=== PATIENT | female | born 1955 | race Caucasian/White ===

== ENCOUNTER 2018-04-04 09:49 | Inpatient (IN) ==
--- NOTE | 2018-04-04 07:01 | Discharge Summary ---
<Althea Martinez E - Last Filed: 04/04/18 09:32> Orders not resulted at time of discharge: Pending orders 04/04/18 01:00 XR knee LT limited 1-2V [XR] Routine Hemoglobin and Hematocrit [HEME] Routine Date of Encounter: 04/04/18 - Discharge Diagnosis (1) Arthritis of left knee Priority: Primary Status: Chronic (2) Status post total left knee replacement Priority: Primary Status: Acute (3) Hypothyroidism Priority: Secondary Status: Chronic Qualifiers: Hypothyroidism type: unspecified Qualified Code(s): E03.9 - Hypothyroidism , unspecified (4) Hyperlipidemia Priority: Secondary Status: Chronic Qualifiers: Hyperlipidemia type: unspecified Qualified Code(s): E78.5 - Hyperlipidemia , unspecified (5) Diverticulosis Priority: Secondary Status: Chronic Qualifiers: Diverticulosis site: unspecified location Diverticulosis bleeding: diverticulosis without bleeding Qualified Code(s): K57.90 - Diverticulosis of intestine, part unspecified, without perforation or abscess without bleeding (6) Obesity Priority: Secondary Status: Chronic Qualifiers: Obesity type: unspecified obesity type Obesity classification: unspecified obesity classification - Hospital Course Hospital course: Ms. Mcclelland is a 62 year old female - Time Spent with Patient Total time spent providing and/or coordinating discharge services: - Discharge Medications Prescriptions: Aspirin Enteric Coated [Aspirin EC] 325 mg PO BID 10 Days #20 tab OxyCODONE Immed Rel [Roxicodone 5 MG] 5 mg PO Q6HR PRN 7 Days #28 tablet PRN Reason: Severe Pain Home Medications: Cholecalciferol (Vitamin D3) [Vitamin D3] 5,000 unit PO DAILY 03/13/16 [History] Levothyroxine Sodium [Tirosint] 112 mcg PO QAM 03/13/16 [History] Rosuvastatin Calcium [Crestor] 5 mg PO HS 03/13/16 [History] Ubidecarenone [Co Q10] 60 mg PO DAILY 03/13/16 [History] Aspirin 81 mg PO DAILY 08/14/16 [History] Acetaminophen [Tylenol Arthritis] 1,300 mg PO DAILY PRN 04/04/18 [History] Aspirin Enteric Coated [Aspirin EC] 325 mg PO BID 10 Days #20 tab 04/04/18 [Rx] Naproxen [Naprosyn] 500 mg PO Q12H PRN 04/04/18 [History] OxyCODONE Immed Rel [Roxicodone 5 MG] 5 mg PO Q6HR PRN 7 Days #28 tablet [Rx] Allergies/Adverse Reactions: 3 Allergy/AdvReac Type Severity Reaction Status Date / Time Sulfa (Sulfonamide Allergy Rash Verified 04/04/18 10:15 Antibiotics) horse serum AdvReac See Uncoded 04/04/18 10:15 Comments Primary care physician: Can Haas DO - Discharge Instructions Follow Up With: Can Haas DO [Primary Care Provider] - <Jacob Bolaños Rigo - Last Filed: 04/04/18 11:17> Orders not resulted at time of discharge: Pending orders 04/04/18 01:00 XR knee LT limited 1-2V [XR] Routine Hemoglobin and Hematocrit [HEME] Routine 04/04/18 10:55 US anesthesia pain block [US] Routine Date of Encounter: 04/04/18 - Discharge Diagnosis (1) Obesity (BMI 35.0-39.9 without comorbidity) Priority: Secondary Status: Chronic (2) Arthritis of left knee Priority: Primary Status: Chronic (3) Status post total left knee replacement Priority: Primary Status: Acute (4) Hyperlipidemia Priority: Secondary Status: Chronic Qualifiers: Hyperlipidemia type: unspecified Qualified Code(s): E78.5 - Hyperlipidemia , unspecified (5) Diverticulosis Priority: Secondary Status: Chronic Qualifiers: Diverticulosis site: unspecified location Diverticulosis bleeding: diverticulosis without bleeding Qualified Code(s): K57.90 - Diverticulosis of intestine, part unspecified, without perforation or abscess without bleeding (6) Hypothyroidism Priority: Secondary Status: Chronic Qualifiers: Hypothyroidism type: unspecified Qualified Code(s): E03.9 - Hypothyroidism , unspecified - Hospital Course Hospital course: Ms. Mcclelland is a 62 year old female - Time Spent with Patient Total time spent providing and/or coordinating discharge services: Primary care physician: Can Haas DO
--- NOTE | 2018-04-04 07:03 | Physician Discharge Referral ---
Home Health/Hosp Referral Info Transfer to: Home Health Attending Provider: Dr. Jacob Bolaños - Diagnosis (1) Arthritis of left knee Priority: Primary Status: Chronic (2) Status post total left knee replacement Priority: Primary Status: Acute (3) Hypothyroidism Priority: Secondary Status: Chronic (4) Hyperlipidemia Priority: Secondary Status: Chronic (5) Diverticulosis Priority: Secondary Status: Chronic (6) Obesity Priority: Secondary Status: Chronic - Respiratory Orders Smoking Cessation: Smoking cessation has been advised. For more information, call the [employer] Tobacco Quit Line at 3-719-GCQN-NOW. - Dressing/Wound Care Site: Left knee Type of Dressing/Treatments w/Frequency: Opsite placed. Keep dressing intact until first follow up appointment. If greater than 50% saturated, notify office, remove dressing and place appropriate dressing back in place. Leave Zipline intact. Opsite dressing is water resistant, not water-proof. OK to shower, but do not get dressing wet. - Diet/Nutrition Diet/Nutrition Orders: Regular - Activity Activity Orders: Up ad jerzy, Ambulate Activity: List: Total Knee replacement Precautions x 6 weeks Apply cold therapy wrap 3-6x/day for 20 minutes at a time. Encourage ambulation throughout the day and incentive spirometer 10x/hour. Elevate affected extremity above heart as tolerated. Brace: Wear knee immobilizer at night x 2 weeks. - Services Needed Following services are medically necessary services: Nursing, Home Health Aide, Physical Therapy, Occupational Therapy - Transfer Medications Home Medications: Cholecalciferol (Vitamin D3) [Vitamin D3] 5,000 unit PO 3XW 03/13/16 [History] Levothyroxine Sodium [Tirosint] 112 mcg PO QAM 03/13/16 [History] Rosuvastatin Calcium [Crestor] 5 mg PO DAILY 03/13/16 [History] Ubidecarenone [Co Q10] 60 mg PO DAILY 03/13/16 [History] Aspirin 81 mg PO DAILY 08/14/16 [History] Allergies/Adverse Reactions: 3 Allergy/AdvReac Type Severity Reaction Status Date / Time Sulfa (Sulfonamide Allergy Rash Verified 08/14/16 09:03 Antibiotics) horse serum Allergy See Uncoded 03/13/16 08:21 Comments Certification: Further, I certify that my clinical findings support that this patient is homebound (i.e. absences from home require considerable and taxing effort and are for medical reasons or hinduism services or infrequently or short duration when for other reasons) because: Homebound Reason: Post-surgery restriction and or conditions limit ability to leave home Attestation: My signature below is to certify that this patient is under my care and that I, or nurse practitioner, or a physician customer relations assistant working with me, has a face-to- face encounter with this patient.
--- NOTE | 2018-04-04 09:17 | Anesthesia Evaluation PreOp ---
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 Any Significant HX Other Medical History: Thyroid Anesthesia History: Past Anesthesia, Problems (PONV) Alcohol Use: unknown Drug use: unknown Medications and Allergies Cholecalciferol (Vitamin D3) [Vitamin D3] 5,000 unit PO DAILY 03/13/16 [History] Levothyroxine Sodium [Tirosint] 112 mcg PO QAM 03/13/16 [History] Rosuvastatin Calcium [Crestor] 5 mg PO HS 03/13/16 [History] Ubidecarenone [Co Q10] 60 mg PO DAILY 03/13/16 [History] Aspirin 81 mg PO DAILY 08/14/16 [History] Acetaminophen [Tylenol Arthritis] 1,300 mg PO DAILY PRN 04/04/18 [History] Aspirin Enteric Coated [Aspirin EC] 325 mg PO BID 10 Days #20 tab 04/04/18 [Rx] Naproxen [Naprosyn] 500 mg PO Q12H PRN 04/04/18 [History] OxyCODONE Immed Rel [Roxicodone 5 MG] 5 mg PO Q6HR PRN 7 Days #28 tablet [Rx] 3 Allergy/AdvReac Type Severity Reaction Status Date / Time Sulfa (Sulfonamide Allergy Rash Verified 04/04/18 10:15 Antibiotics) horse serum AdvReac See Uncoded 04/04/18 10:15 Comments - Meds/Allergy Pre-op Review Medications Reviewed: Yes Allergies Reviewed: Yes Beta Blockers on Current Med List: No Anesthesia Results - Labs Laboratory Tests 03/28/18 03/28/18 03/28/18 11:28 11:28 11:28 WBC 7.3 Hgb 13.2 Hct 40.7 Plt Count 259 PT 10.4 INR 1.0 APTT 29.3 Sodium 140 Potassium 4.4 BUN 13 Creatinine 0.63 - Imaging EKG: report reviewed (02/25/2016 SINUS BRADYCARDIA) Anesthesia Exam O2 Sat Height 1.52 m Height 1.52 m Weight 82.1 kg Weight 82.1 kg O2 Sat by Pulse Oximetry 98 Vital Signs Temp Pulse Resp BP Pulse Ox 98.7 F 67 18 141/88 98 04/04/18 10:10 04/04/18 10:10 04/04/18 10:10 04/04/18 10:10 04/04/18 10:10 Height: 5' Weight: 181 lbs NPO (# of Hours): 8 Pain Scale: 0 Pain Scale Used: Numeric (1 - 10) - HEENT Pupil (Motor): EOMI Mallampati: III Teeth: Normal Oral Opening: Greater than 3 - POWDER MILL OPERATOR LOC: Oriented POWDER MILL OPERATOR Motor: Normal RUE, Normal LUE, Normal RLE, Normal LLE, Normal Face POWDER MILL OPERATOR Sensory: Normal: LUE, RLE, LLE, Face, Deficit: RUE - Cardiac Rhythm: Regular Murmur: None - Pulmonary Breath Sounds: bilateral Clear Respiratory Effort: Symmetrical Anesthesia Assess/Plan ASA Score: 2 Modified [place] Scale for Level of Consciousness: Cooperative, oriented, and tranquil Anesthetic Plan: General, Regional Monitoring Plan: Standard Monitors Recovery Plan: PACU
[2018-04-04] MEDS ORDERED: *HR* FentaNYL (PF) 100 MCG/2 ML VIAL ONE ×2 (10:00→12:43)
[2018-04-04] MEDS ORDERED: *HR* Midazolam HCl 2 MG/2 ML VIAL ONE (10:00)
[2018-04-04] MEDS ORDERED: Lidocaine -MPF 2% 2 ML VIAL ONE (10:05)
[2018-04-04] MEDS ORDERED: Ringers Solution, Lactated 1,000 ML IVC SCH (10:15)
[2018-04-04] MEDS ORDERED: *HR* Propofol 200 MG/20 ML VIAL IVP ONE (10:54)
[2018-04-04] MEDS ORDERED: Scopolamine Patch 1.5 MG PATCH.TD72 TD ONE (10:55)
[2018-04-04] MEDS ORDERED: Scopolamine Patch 1.5 MG PATCH.TD72 ONE (10:56)
--- NOTE | 2018-04-04 11:07 | History & Physical Report ---
Date of Encounter: 04/04/18 Time of Encounter: 11:06 24 Hour HP Update - Instructions Instructions: If the History and Physical is less than 30 days old and was completed prior to A.M. admission and or procedure and has NOT been updated on calendar day of procedure please complete this update prior to performing procedure. - Update Patient reports changes in Medical Condition: No Changes in examination, assessment, or condition: No Changes in Medication: No Preop tests/diagnostics Reviewed: Yes Surgery Remains Indicated: Yes Consent for Planned Operative Procedure(s) Verified: Yes - Pre-Operative Checklist Preoperative Checklist Indicated: No Prophylactic Antibiotic Ordered: Yes Is VTE Prophylaxis Indicated?: Yes
[2018-04-04] MEDS ORDERED: Morphine Sulfate/PF 5mg/10mL Vial ONE (11:13)
[2018-04-04] MEDS ORDERED: ROPIVACAINE HCL/PF 0.5% 30 ML VIAL ONE (11:13)
[2018-04-04] MEDS ORDERED: Dexamethasone 4 MG/ML VIAL ONE ×2 (11:14→12:18)
[2018-04-04] MEDS ORDERED: Bupivacaine/Clonidine Syringe 1 EACH SYRINGE ONE (11:27)
[2018-04-04] MEDS ORDERED: Ethanol\\Acetic Acid\\Na Ace\\Ben 1,000 ML IRRIG.SOLN IR ONE (11:49)
--- NOTE | 2018-04-04 11:50 | Anesthesia Procedures ---
Date of Encounter: 04/04/18 Time of Encounter: 11:48 Procedures: Anesthesia - Nerve Block Procedure Date: 04/04/18 Time: 11:29 Allergies/Adv Reactions: sulfa, horse serum Pre-op Diagnosis: Left Knee Arthritis Surgical Procedure: Left Total Knee Checklist: Correct Patient Identifier, Correct procedure, History checked Correct side: Left Blood Thinner: No Monitor Applied: EKG, BP, Pulse Oximetry Supplemental Oxygen via Nasal Cannula (L/min): 2 Sedation: Versed (mg): 1 Sedation: Fentanyl (mcg): 50 Indication: Post Op Analgesia Pre-op Neuro Deficits: No Block Type: Femoral, Other (IPAQ) Catheter placed: No Sterile Technique: Yes Ultrasound used: Yes Anatomy identified: Yes Visual spread of Local: Yes Neuro Stimulation: No Blood on Needle Aspiration: No Smooth Injection of Local: Yes Pain with Injection of Local: No Prep: Chlorhexadine Local: 0.25% Bupivicaine w/Clonidine 20 mcg/cc (20cc for IPAQ), Ropivacaine ( 30cc 0.5% + decadron 8mg for femoral) Volume (cc): 50 Number of Attempts: 1 Complications: None/effective block Vitals: 3 Vital Signs BP 129/86 138/81 Pulse 71 57 Resp 20 18 O2 Sat 98% 97%
[2018-04-04] MEDS ORDERED: Ondansetron 4 MG/2 ML VIAL ONE (12:18)
[2018-04-04] MEDS ORDERED: *HR* HYDROcodone/Acet 5/325 mg TABLET PO PRN (12:27)
[2018-04-04] MEDS ORDERED: Ondansetron 4 MG/2 ML VIAL IVP ONE (12:27)
[2018-04-04] MEDS ORDERED: *HR* PHENYLEPHRINE 1,000 MCG/10 ML SYRINGE IVP ONE (12:40)
--- NOTE | 2018-04-04 13:10 | Orthopedic Operative Note ---
Date of procedure: 04/04/18 Pre-op diagnosis: left knee arthritis Post-op diagnosis: same Procedure: Procedure: Left robotic-assisted Total knee replacement Estimated blood loss: 200 cc Hardware: Metal and polyethylene replacement. [place] Femur: 2 Tibia: 2 TS insert: 13 Patella: 36 Exam Under anesthesia: Flexion contracture 12 degrees, 5 degree varus as calculated by the robot full flexion and no instability Procedural Notes: Grade 4 arthritic changes all 3 compartments. Operative procedure: The patient was brought to the operating room and placed on the operating room table. After general anesthesia was administered the operative knee was examined. Findings were noted in the exam under anesthesia. The operative extremity was prepped and draped in sterile surgical fashion. The patient received IV antibiotics prior to skin incision. A standard midline incision was made centered over the patella. The incision was made through the skin and subcutaneous tissue. A medial parapatellar tendon approach was performed. Care was taken to preserve tissue along the medial aspect of the patella. And to protect the patella tendon. The deep MCL was released off the medial tibia. The infra patella fat pad was excised. The patella was everted and cut was made at the level of the insertion of the quadriceps and patella tendon. The patella was sized to a 36 the guide was seated and the lug holes are drilled. Knee was brought into flexion. Patient noted to have Steinmann pins were placed in the tibia and the femur for the tibial and femoral arrays respectively. Checkpoints were also placed in the tibia and the femur for calculation purposes. The knee including the femur and the tibial registered. Osteophytes, ACL and PCL were excised at this point. Extension and flexion were assessed with a valgus stress components were adjusted on the computer to balance the knee. Femoral cuts were made first with robotic assistance, these included the anterior cut posterior cuts chamfer cuts. Tibial cut was then performed with robotic assistance as well. Bone fragments were removed, as well as the medial and lateral meniscus. The size 2 femoral guide was seated box cut was made lug holes are drilled. The size 2 tibial tray was seated and prepared with the fin cutter. Trial reduction with the 13 TS Ekaterina revealed extension of 0 degree and 3 degree varus full flexion. No varus valgus instability. Trial reduction revealed excellent patella tracking. All trial components were removed all bony surfaces were irrigated. The Tibia was seated followed by the femur, The Ekaterina size 13 was seated and secured patella. Patient had similar findings for motion and stability. The knee was closed by the PA. The knee was then irrigated out with 2 L of pulse irrigation. The extensor mechanism was closed with #2 FiberWire suture and #2 PDS suture. The subcutaneous tissue was then irrigated and closed deep with #1 PDS suture superficially with 0 PDS suture and skin was closed with zip tie The patient was then placed in a sterile dressing and a postoperative brace extubated and transferred to recovery room in stable condition. Anesthesia: GETA Surgeon: Jacob Bolaños Was there an general assistant present: Yes Produce Manager: Renetta Mederos Estimated blood loss (cc): 200 Condition: stable Disposition: PACU
--- NOTE | 2018-04-04 14:11 | Anesthesia Evaluation Post Op ---
Date of Encounter: 04/04/18 Time of Encounter: 14:10 - Vital Signs Vital Signs: Vital Signs/O2 Sat, Most Current Temp Pulse Resp BP Pulse Ox 98.9 F 64 16 140/96 97 04/04/18 14:05 04/04/18 14:05 04/04/18 14:05 04/04/18 14:04 04/04/18 14:05 - Lungs Lungs: Clear Ascult./Percussion - Airway Airway: Non-obstructed - Cardiovascular Regular Rate - Mental Status Mental Status: Alert & Oriented, Answers Appropriately - Pain Pain Scale: 4 - Nausea Vomiting Nausea Vomiting: Not Present - Hydration Hydration: Tolerates oral liquids, Has not voided - Discharge PostOp Status: Discharge Patient to home
[2018-04-04 14:32] LABS: Hematocrit 36.2 % (35.3-44.9)
[2018-04-04] MEDS ORDERED: Ondansetron 4 MG/2 ML VIAL IVP PRN (14:48)
[2018-04-04] MEDS ORDERED: *HR* OxyCODONE Immed Rel 5 MG TABLET PO PRN (14:48)
[2018-04-04] MEDS ORDERED: traMADol 50 MG TABLET PO PRN (14:48)
[2018-04-04] MEDS ORDERED: Temazepam 15 MG CAPSULE PO PRN (14:48)
[2018-04-04] MEDS ORDERED: Naloxone 0.4 MG/ML INJ IVP PRN (14:48)
[2018-04-04] MEDS ORDERED: Sennosides 8.6 MG TABLET PO PRN (14:48)
[2018-04-04] MEDS ORDERED: MOM Conc 10 ML UD.LIQ PO PRN (14:48)
[2018-04-04] MEDS: *HR* Enoxaparin 30 MG/0.3 ML SYRINGE SQ SCH (16:21)
[2018-04-04] MEDS: ceFAZolin 2,000 MG in 0.9 % Sodium Chloride 100 ML IVPB SCH ×2 (16:22→23:29)
[2018-04-04] MEDS: *HR* OxyCODONE/APAP 5/325 TABLET PO PRN ×2 (16:22→21:09)
[2018-04-04] MEDS ORDERED: *HR* Enoxaparin 30 MG/0.3 ML SYRINGE SQ SCH (18:00)
[2018-04-04] MEDS: Ringers Solution, Lactated 1,000 ML IVC SCH (23:28)
[2018-04-05] MEDS: *HR* OxyCODONE/APAP 5/325 TABLET PO PRN ×4 (05:27→21:42)
[2018-04-05 05:33] LABS: Hematocrit 34.3 % (35.3-44.9); Hemoglobin 11.3 g/dL (11.5-15.4)
[2018-04-05 05:47] LABS: BUN/Creatinine Ratio 18 (6-26); Blood Urea Nitrogen 11 mg/dL (8-23); Calcium 8.5 mg/dL (8.6-10.3); Carbon Dioxide 24 mEq/L (23-29); Chloride 107 mEq/L (98-107); Glucose 151 mg/dL (70-105); Osmolality,Calculated 288 (280-300); Sodium 138 mEq/L (136-145); eGFR For African Americans > 60 (> 60); eGFR For Non-African Americans > 60 (> 60)
--- NOTE | 2018-04-05 06:28 | Orthopedics Progress Note ---
Date of Encounter: 04/05/18 Time of Encounter: 06:27 - Assessment and Plan (1) Obesity (BMI 35.0-39.9 without comorbidity) Current Visit: Yes Status: Chronic (2) Arthritis of left knee Current Visit: No Status: Chronic (3) Status post total left knee replacement Current Visit: No Status: Acute (4) Hyperlipidemia Current Visit: No Status: Chronic Qualifiers: Hyperlipidemia type: unspecified Qualified Code(s): E78.5 - Hyperlipidemia , unspecified (5) Diverticulosis Current Visit: No Status: Chronic Qualifiers: Diverticulosis site: unspecified location Diverticulosis bleeding: diverticulosis without bleeding Qualified Code(s): K57.90 - Diverticulosis of intestine, part unspecified, without perforation or abscess without bleeding (6) Hypothyroidism Current Visit: No Status: Chronic Qualifiers: Hypothyroidism type: unspecified Qualified Code(s): E03.9 - Hypothyroidism , unspecified Subjective Interval history: Patient was seen this morning doing well without complaints. Afebrile vital signs stable. Operative extremity: Neurovascularly intact Dressing clean dry and intact Calves nontender Assessment and plan: Continue with postoperative care Hematocrit 34 Objective Vital signs: Vital Signs Temp Pulse Resp BP Pulse Ox 04/05/18 04:29 98.4 F 74 16 146/83 95 04/04/18 23:25 98.6 F 78 14 132/81 93 04/04/18 21:12 98.6 F 99 16 128/89 97 04/04/18 20:45 97 04/04/18 17:55 97.9 F 89 16 132/83 97 04/04/18 16:55 98.9 F 97 16 116/73 98 04/04/18 15:55 97.9 F 86 15 137/83 04/04/18 15:25 97.9 F 59 16 140/81 98 04/04/18 14:55 98 F 70 16 126/87 97 04/04/18 14:40 97.7 F 97 15 147/81 97 04/04/18 14:24 98.9 F 60 16 147/92 97 04/04/18 14:14 98.9 F 64 16 143/81 97 04/04/18 14:04 68 16 140/96 98 04/04/18 13:54 76 16 142/86 98 04/04/18 13:44 98.5 F 91 16 146/90 97 04/04/18 11:59 67 122/81 98 04/04/18 11:47 60 138/61 96 04/04/18 11:30 66 129/86 98 04/04/18 10:17 98.7 F 67 18 141/88 98 04/04/18 10:10 98.7 F 67 18 141/88 98 Intake and Output 04/04/18 04/04/18 04/05/18 15:59 23:59 07:59 Intake Total 100 / 100 240 / 240 Output Total 200 / 200 Balance -200 / -200 100 / 100 240 / 240 Intake: IV Fluids 100 / 100 Ancef 2,000 MG In 0.9 % Sodium 100 / 100 Chloride 100 ML @ 200 mls/hr IVPB Q8HR [facility] Rx#:[id number] Oral 240 / 240 Output: Estimated Blood Loss 200 / 200 Other: # Voids 1 1 Weight 82.1 kg - Labs CBC & BMP: 04/05/18 05:00 04/05/18 05:00 Labs: Abnormal lab results Hgb 11.3 g/dL (11.5-15.4) L 04/05/18 05:00 Hct 34.3 % (35.3-44.9) L 04/05/18 05:00 Glucose 151 mg/dL (70-105) H 04/05/18 05:00 Calcium 8.5 mg/dL (8.6-10.3) L 04/05/18 05:00 - VTE Documentation of Mechanical Device: Venous foot pump, device Consult Discharge Plan - Plan Referrals: Can Haas DO [Primary Care Provider] -
[2018-04-05] MEDS: *HR* Enoxaparin 30 MG/0.3 ML SYRINGE SQ SCH ×2 (06:48→18:19)
[2018-04-05] MEDS: Cholecalciferol (D-3) 1,000 UNIT TABLET PO SCH (07:29)
[2018-04-05] MEDS: Aspirin 81 MG TAB.CHEW PO SCH (07:29)
[2018-04-05] MEDS: UBIDECARENONE 60 MG PO SCH (07:33)
--- NOTE | 2018-04-05 16:00 | Event Note ---
Date of Encounter: 04/05/18 Time of Encounter: 15:59 PCR - POD#1 - Left TKR 04/04. Patient seen at bedside. *shan placed in OR Labs reviewed. Pain control: adequate Participating in PT. All questions and concerns addressed. Educated on use of incentive spirometer. Encouraged ambulation and proper hydration. Patient educated on post-operative restrictions and post-operative care. Addressed: see above Discharge plan: D/C home tomorrow with HH.
[2018-04-05] MEDS: Ringers Solution, Lactated 1,000 ML IVC SCH (18:36)
[2018-04-06 03:51] LABS: Hematocrit 30.8 % (35.3-44.9); Hemoglobin 10.1 g/dL (11.5-15.4)
[2018-04-06 04:05] LABS: BUN/Creatinine Ratio 20 (6-26); Blood Urea Nitrogen 11 mg/dL (8-23); Calcium 8.1 mg/dL (8.6-10.3); Carbon Dioxide 27 mEq/L (23-29); Chloride 107 mEq/L (98-107); Glucose 135 mg/dL (70-105); Osmolality,Calculated 289 (280-300); Potassium 3.7 mEq/L (3.5-5.1); Sodium 139 mEq/L (136-145); eGFR For African Americans > 60 (> 60); eGFR For Non-African Americans > 60 (> 60)
[2018-04-06] MEDS: *HR* OxyCODONE/APAP 5/325 TABLET PO PRN ×3 (04:44→14:14)
[2018-04-06] MEDS: *HR* Enoxaparin 30 MG/0.3 ML SYRINGE SQ SCH (06:49)
[2018-04-06] MEDS: Aspirin 81 MG TAB.CHEW PO SCH (08:45)
[2018-04-06] MEDS: Cholecalciferol (D-3) 1,000 UNIT TABLET PO SCH (08:45)
[2018-04-06] MEDS: UBIDECARENONE 60 MG PO SCH (08:45)
[2018-04-06 11:02] VITALS: BP 148/81
--- NOTE | 2018-04-06 12:55 | Orthopedics Progress Note ---
Date of Encounter: 04/06/18 Time of Encounter: 09:45 - Assessment and Plan (1) Status post total left knee replacement Current Visit: Yes Status: Acute Patient was seen this morning doing well, without complaints. Afebrile, vital signs stable. Operative extremity: Neurovascularly intact Dressing clean dry and intact - shan intact Calf nontender, swelling noted to LLE Labs reviewed. H/H - stable, asymptomatic - 10.1/30.8 Pain control: adequate Educated on use of incentive spirometer. Encouraged ambulation and proper hydration. Patient educated on post-operative restrictions and post-operative care. Assessment and plan: Continue with postoperative care Discharge plan: Home, discharge today with . (2) Arthritis of left knee Current Visit: Yes Status: Chronic (3) Hypothyroidism Current Visit: No Status: Chronic Qualifiers: Hypothyroidism type: unspecified Qualified Code(s): E03.9 - Hypothyroidism , unspecified (4) Hyperlipidemia Current Visit: No Status: Chronic Qualifiers: Hyperlipidemia type: unspecified Qualified Code(s): E78.5 - Hyperlipidemia , unspecified (5) Diverticulosis Current Visit: No Status: Chronic Qualifiers: Diverticulosis site: unspecified location Diverticulosis bleeding: diverticulosis without bleeding Qualified Code(s): K57.90 - Diverticulosis of intestine, part unspecified, without perforation or abscess without bleeding (6) Obesity (BMI 35.0-39.9 without comorbidity) Current Visit: Yes Status: Chronic Subjective Principal diagnosis: s/p Left TKR 04/04 Interval history: Patient seen at bedside. Patient was seen this morning doing well, without complaints. Afebrile, vital signs stable. Operative extremity: Neurovascularly intact Dressing clean dry and intact - shan intact Calf nontender, swelling noted to LLE Labs reviewed. H/H - stable, asymptomatic - 10.1/30.8 Pain control: adequate Participating in PT. All questions and concerns addressed. Educated on use of incentive spirometer. Encouraged ambulation and proper hydration. Patient educated on post-operative restrictions and post-operative care. Assessment and plan: Continue with postoperative care Discharge plan: Home, discharge today with . Objective Vital signs: Vital Signs Temp Pulse Resp BP Pulse Ox 04/06/18 11:00 98.8 F 88 16 148/81 96 04/06/18 07:04 98.9 F 92 18 134/82 92 04/06/18 00:15 98.3 F 92 16 121/75 94 04/05/18 19:54 99.0 F 98 16 141/78 97 04/05/18 16:03 99.1 F 79 18 141/82 97 Intake and Output 04/05/18 04/06/18 04/06/18 23:59 07:59 15:59 Intake Total 120 / 120 Balance 120 / 120 Intake: Oral 120 / 120 Other: Meal Breakfast Percent of Meal Consumed 75% # Voids 1 Incision: clean and dry - Labs CBC & BMP: 04/06/18 03:25 04/06/18 03:25 Labs: Abnormal lab results Hgb 10.1 g/dL (11.5-15.4) L 04/06/18 03:25 Hct 30.8 % (35.3-44.9) L 04/06/18 03:25 Creatinine 0.56 mg/dL (0.60-1.20) L 04/06/18 03:25 Glucose 135 mg/dL (70-105) H 04/06/18 03:25 Calcium 8.1 mg/dL (8.6-10.3) L 04/06/18 03:25 - VTE Documentation of Mechanical Device: Venous foot pump, device Consult Discharge Plan - Plan Referrals: Can Haas DO [Primary Care Provider] -
== END 2018-04-06 16:36 | disposition home health service (06) | DRG 470 ==
LOC: SAMDAY 09:49 → 3NENU 14:32
PROVIDERS: ADMIT Orthopaedic Surgery; ATTEND Orthopaedic Surgery

== ENCOUNTER 2018-12-05 12:26 | Inpatient (IN) ==
--- NOTE | 2018-12-04 22:04 | Discharge Summary ---
Orders not resulted at time of discharge: Pending orders 12/05/18 00:01 XR knee RT 1-2V [XR] Routine H/H [Hemoglobin and Hematocrit] [HEME] Routine Date of Encounter: 12/07/18 Time of Encounter: 10:38 - Discharge Diagnosis (1) Status post total knee replacement, right Priority: Primary Status: Acute Comments: Opsite dressing, leave intact until first post-operative visit. If dressing becomes >50% saturated, contact office, remove dressing and place appropriate dressing in its place. Do not allow for dressing to get wet. Zipline in place, plan to remove at post-operative day #14-16. Total Joint Precautions x 6 weeks Apply cold therapy wrap 3-6x/day for 20 minutes at a time. Encourage ambulation throughout the day Use Incentive spirometer 10x/hour. Elevate affected extremity above heart as tolerated. Brace: Wear knee immobilizer at night until first post-operative appt. (2) Arthritis of knee, right Priority: Primary Status: Acute (3) Hyperlipidemia Priority: Secondary Status: Chronic Qualifiers: Hyperlipidemia type: mixed hyperlipidemia Qualified Code(s): E78.2 - Mixed hyperlipidemia (4) Hypothyroidism Priority: Secondary Status: Chronic Qualifiers: Hypothyroidism type: unspecified Qualified Code(s): E03.9 - Hypothyroidism, unspecified (5) Obesity (BMI 35.0-39.9 without comorbidity) Priority: Secondary Status: Chronic - Hospital Course Hospital course: Ms. Mcclelland is a 63 year old female, \POD#2 - Right TKR 12/05/18. Patient seen at bedside by this AM, without complaints. A&O x 3 Afebrile, vital signs stable. Vital Signs Temp Pulse Resp BP Pulse Ox 12/07/18 06:48 98.1 F 78 16 124/79 94 12/07/18 03:14 97.9 F 73 16 128/77 93 12/06/18 23:01 98.3 F 76 17 104/67 92 12/06/18 18:59 98.4 F 73 16 123/75 95 12/06/18 17:21 98.7 F 82 16 129/74 94 12/06/18 11:30 98.9 F 82 16 115/76 93 Intake and Output 12/06/18 12/07/18 12/07/18 23:59 07:59 15:59 Intake Total 840 / 840 200 / 200 Output Total 300 / 300 Balance 540 / 540 200 / 200 Intake: Oral 840 / 840 200 / 200 Output: Urine 300 / 300 Other: Meal Dinner Percent of Meal Consumed 100% # Voids 3 1 Weight 83.2 kg Patient Weight 12/07/18 23:59 Weight 83.2 kg Labs reviewed. H/H - stable, asymptomatic Short CBC 12/07/18 Range/Units 08:35 Hgb 10.4 L (11.5-15.4) g/dL Hct 31.5 L (35.3-44.9) % BMP 12/07/18 Range/Units 08:35 Sodium 140 (136-145) mEq/L Potassium 3.8 (3.5-5.1) mEq/L Chloride 106 (98-107) mEq/L Carbon Dioxide 30 H (23-29) mEq/L BUN 12 (8-23) mg/dL Creatinine 0.60 (0.60-1.20) mg/dL Glucose 108 H (70-105) mg/dL Calcium 8.5 L (8.6-10.3) mg/dL Pain control: adequate Participating in PT. All questions and concerns addressed. Educated on use of incentive spirometer. Encouraged ambulation and proper hydration. Patient educated on post-operative restrictions and post-operative care. Assessment and plan: Continue with postoperative care Discharge plan: Home with OP, discharge now Compression stockings for home. - Time Spent with Patient Total time spent providing and/or coordinating discharge services: - Discharge Medications Home Medications: Cholecalciferol (Vitamin D3) [Vitamin D3] 5,000 unit PO Q3-4D 03/13/16 [History] Levothyroxine Sodium [Tirosint] 112 mcg PO QAM 03/13/16 [History] Rosuvastatin Calcium [Crestor] 5 mg PO DAILY 03/13/16 [History] Ubidecarenone [Co Q10] 60 mg PO DAILY 03/13/16 [History] Acetaminophen [Tylenol Arthritis] 1,300 mg PO DAILY PRN 04/04/18 [History] Aspirin Enteric Coated [Aspirin EC] 325 mg PO BID #20 tablet. 12/04/18 [Rx] Multivit/Ca/Min/Fe/FA [Thera M Plus] 1 tab PO DAILY tablet 12/07/18 [Rx] Allergies/Adverse Reactions: Allergy/AdvReac Type Severity Reaction Status Date / Time Sulfa (Sulfonamide Allergy Rash Verified 11/23/18 13:26 Antibiotics) horse serum AdvReac See Uncoded 04/04/18 10:15 Comments Date of admission: 12/05/18 Primary care physician: Can Haas DO Anticipated date of discharge: 12/07/18 - Patient Status Disposition: Home, Self-Care Condition: Good Functional capacity at discharge: uses cane/walker Overall status at discharge: patient is progressing back to baseline - Discharge Instructions Follow Up With: Can Haas DO [Primary Care Provider] -
[~2018-12-05 12:26] MED LIST: Total Joint Mixture (50 ml) IR ONE
[2018-12-05] MEDS ORDERED: *HR* FentaNYL (PF) 100 MCG/2 ML VIAL ONE (12:30)
[2018-12-05] MEDS ORDERED: Dexamethasone 4 MG/ML VIAL ONE ×2 (12:31)
[2018-12-05] MEDS ORDERED: Ondansetron 4 MG/2 ML VIAL ONE ×2 (12:31)
[2018-12-05] MEDS ORDERED: *HR* Succinylcholine 200 MG/10 ML VIAL IVP ONE (12:31)
[2018-12-05] MEDS ORDERED: Lidocaine -MPF 2% 2 ML VIAL ONE (12:32)
[2018-12-05] MEDS ORDERED: Tranexamic Acid 1,000 MG/10 ML VIAL ONE (12:32)
[2018-12-05] MEDS ORDERED: *HR* Propofol 200 MG/20 ML VIAL IVP ONE (12:32)
[2018-12-05] MEDS ORDERED: *HR* Midazolam HCl 2 MG/2 ML VIAL ONE (12:33)
[2018-12-05] MEDS ORDERED: Propofol 500 MG/50 ML INFUS..BTL ONE (12:34)
--- NOTE | 2018-12-05 12:40 | Anesthesia Evaluation PreOp ---
Date of Encounter: 12/05/18 Time of Encounter: 12:38 - Past History Planned Operation: R robotic total knee Cardiac History: Hyperlipidemia Pulmonary History: Denies Any Significant HX NUCLEAR PHYSICIAN History: Denies Any Significant HX Other Medical History: Thyroid (hypo), Other (BMI 35) Anesthesia History: Past Anesthesia (LEFT TKA 03/2018, knee scopes, hysterectomy,), Problems (PONV) : No Alcohol Use: none Drug use: none Medications and Allergies Cholecalciferol (Vitamin D3) [Vitamin D3] 5,000 unit PO Q3-4D 03/13/16 [History] Levothyroxine Sodium [Tirosint] 112 mcg PO QAM 03/13/16 [History] Rosuvastatin Calcium [Crestor] 5 mg PO DAILY 03/13/16 [History] Ubidecarenone [Co Q10] 60 mg PO DAILY 03/13/16 [History] Acetaminophen [Tylenol Arthritis] 1,300 mg PO DAILY PRN 04/04/18 [History] Diclofenac Sodium [Voltaren] 100 gm TP TID 07/27/18 [History] Aspirin Enteric Coated [Aspirin EC] 325 mg PO BID #20 tablet. 12/04/18 [Rx] Docusate [Colace] 100 mg PO BID 10 Days #20 capsule 12/04/18 [Rx] OxyCODONE Immed Rel [Roxicodone 5 MG] 5 mg PO Q6HR PRN 7 Days #28 tablet 12/04/18 [Rx] Allergy/AdvReac Type Severity Reaction Status Date / Time Sulfa (Sulfonamide Allergy Rash Verified 11/23/18 13:26 Antibiotics) horse serum AdvReac See Uncoded 04/04/18 10:15 Comments - Meds/Allergy Pre-op Review Medications Reviewed: Yes Allergies Reviewed: Yes Beta Blockers on Current Med List: No Anesthesia Results - Labs Laboratory Tests 11/23/18 11/23/18 11/23/18 14:08 14:08 14:08 WBC 5.8 Hgb 13.9 Hct 41.6 Plt Count 299 PT 10.5 INR 0.9 APTT 30.2 Sodium 140 Potassium 4.0 Chloride 105 Carbon Dioxide 25 BUN 12 Creatinine 0.66 Est GFR (Non-Af Amer) > 60 - Imaging EKG: report reviewed Anesthesia Exam vitals reviewed in chart Weight: 83 kg NPO (# of Hours): > 8 hr - HEENT Pupil (Motor): Pupils equal Mallampati: II Teeth: Normal - NUCLEAR PHYSICIAN LOC: Oriented NUCLEAR PHYSICIAN Motor: Normal RUE, Normal LUE, Normal RLE, Normal LLE, Normal Face NUCLEAR PHYSICIAN Sensory: Normal: RUE, LUE, RLE, LLE, Face - Cardiac Rhythm: Regular Murmur: None - Pulmonary Breath Sounds: bilateral Clear Respiratory Effort: Symmetrical Anesthesia Assess/Plan ASA Score: 2 Level of consciousness: Cooperative, Oriented Anesthetic Plan: Regional Nerve Block, Spinal Regional Nerve Block Plan: Adductor canal Monitoring Plan: Standard Monitors Recovery Plan: PACU
[2018-12-05] MEDS ORDERED: Gabapentin 300 MG CAPSULE PO ONE (12:49)
[2018-12-05] MEDS ORDERED: *HR* OxyCODONE ER (12 HR) 10 MG TABLET PO ONE (12:49)
[2018-12-05] MEDS ORDERED: Famotidine 20 MG/2 ML VIAL IVP ONE (12:49)
[2018-12-05] MEDS ORDERED: Scopolamine Patch 1.5 MG PATCH.TD72 TD ONE (12:49)
[2018-12-05] MEDS ORDERED: CeFAZolin Syr 2,000MG/20 ML 2,000 MG/20 ML SYRINGE IVPB ONE (12:54)
[2018-12-05] MEDS ORDERED: Ringers Solution, Lactated 1,000 ML IVC SCH ×2 (13:00→17:17)
--- NOTE | 2018-12-05 13:00 | History & Physical Report ---
Date of Encounter: 12/05/18 Time of Encounter: 12:59 24 Hour HP Update - Instructions Instructions: If the History and Physical is less than 30 days old and was completed prior to A.M. admission and or procedure and has NOT been updated on calendar day of procedure please complete this update prior to performing procedure. - Update Patient reports changes in Medical Condition: No Changes in examination, assessment, or condition: No Changes in Medication: No Preop tests/diagnostics Reviewed: Yes Surgery Remains Indicated: Yes Consent for Planned Operative Procedure(s) Verified: Yes - Pre-Operative Checklist Preoperative Checklist Indicated: No Prophylactic Antibiotic Ordered: Yes Is VTE Prophylaxis Indicated?: Yes
[2018-12-05] MEDS ORDERED: Lidocaine -MPF 1% 5 ML AMPUL ONE ×2 (13:23→13:50)
[2018-12-05] MEDS ORDERED: ROPIVACAINE HCL/PF 0.5% 30 ML VIAL ONE (13:23)
[2018-12-05] MEDS ORDERED: Ethanol\\Acetic Acid\\Na Ace\\Ben 1,000 ML IRRIG.SOLN IR ONE (13:41)
--- NOTE | 2018-12-05 14:08 | Anesthesia Procedures ---
Date of Encounter: 12/05/18 Time of Encounter: 13:50 Procedures: Anesthesia - Epidural/Spinal Patient ID/Chart reviewed: Yes Patient examined: Yes OB Eval: Contractions: Non-stressed pattern Consent Obtained: Yes Supplemental Oxygen: Nasal Cannula Supplemental Oxygen Rate (L/min): 3 Sedation: Versed (mg): 2 Sedation: Fentanyl (mcg): 100 Site Prep: Aseptic Technique, Sterile prep and drape, 0.5% Chlorhexidine/Alcohol Patient position: upright Local Anesthetic: Lidocaine 1% Amount of Local Anesthetic used: 5 Interspace Used: L4-L5 Loss of Resistance (AMILCAR): No Blood: No CSF: Yes Paresthesia: No Spinal Needle Gauge: 24 (120mm sprotte needle) Spinal Dose: 2.5mL of isobaric bupi Procedure: Challenging to access intrathecal space. Ewa Todd CRNA multiple attempts at L3/4 & L4/[address] Farnaz MD able to access intrathecal space at level of L4/5. Patient tolerated procedure well; VSS Vitals + FHT's: see holding vital signs notes
--- NOTE | 2018-12-05 14:10 | Anesthesia Procedures ---
Date of Encounter: 12/05/18 Time of Encounter: 13:55 Procedures: Anesthesia - Nerve Block Procedure Date: 12/05/18 Time: 13:55 Allergies/Adv Reactions: sulfa, horse serum Pre-op Diagnosis: R knee arthritis Surgical Procedure: Robotic assisted R TKA Checklist: Correct Patient Identifier, Correct procedure, History checked Correct side: Right Blood Thinner: No Monitor Applied: EKG, BP, Pulse Oximetry Supplemental Oxygen via Nasal Cannula (L/min): 3 Sedation: Versed (mg): 2 Sedation: Fentanyl (mcg): 100 Indication: Post Op Analgesia Pre-op Neuro Deficits: No Block Type: Other (adductor canal n. block) Catheter placed: No Sterile Technique: Yes Ultrasound used: Yes Anatomy identified: Yes Visual spread of Local: Yes Neuro Stimulation: No Blood on Needle Aspiration: No Smooth Injection of Local: Yes Pain with Injection of Local: No Prep: Chlorhexadine Needle: 21 x 100 mm Stimuplex Local: Ropivacaine (10mL of 0.5% ropivicaine + 8mg dexamethasone) Number of Attempts: 1 Complications: None/effective block Vitals: see holding vital signs notes
[2018-12-05] MEDS ORDERED: EPHEDrine 50 MG/ML VIAL ONE (14:12)
[2018-12-05] MEDS ORDERED: *HR* PHENYLEPHRINE 1,000 MCG/10 ML SYRINGE IVP ONE (14:12)
[2018-12-05 15:51] LABS: Hematocrit 36.3 % (35.3-44.9)
--- NOTE | 2018-12-05 16:04 | Anesthesia Evaluation Post Op ---
Date of Encounter: 12/05/18 Time of Encounter: 16:03 - Vital Signs Vital Signs: Vital Signs/O2 Sat, Most Current Temp Pulse Resp BP Pulse Ox 98.5 F 98 18 138/77 98 12/05/18 15:57 12/05/18 15:57 12/05/18 15:57 12/05/18 15:57 12/05/18 15:57 - Lungs Lungs: Clear Ascult./Percussion - Airway Airway: Non-obstructed - Cardiovascular Regular Rate - Mental Status Mental Status: Alert & Oriented, Answers Appropriately - Pain Pain Scale: 0 Pain Scale used: Numeric (1 - 10) - Nausea Vomiting Nausea Vomiting: Not Present - Hydration Hydration: Tolerates oral liquids, Has not voided - Discharge PostOp Status: Transfer Patient to floor
[2018-12-05] MEDS ORDERED: *HR* OxyCODONE Immed Rel 5 MG TABLET PO PRN (17:17)
[2018-12-05] MEDS ORDERED: Ondansetron 4 MG/2 ML VIAL IVP PRN (17:17)
[2018-12-05] MEDS ORDERED: *HR* Promethazine 25 MG/ML VIAL IVP PRN (17:17)
[2018-12-05] MEDS ORDERED: Sennosides 8.6 MG TABLET PO PRN (17:17)
[2018-12-05] MEDS ORDERED: MOM Conc 10 ML UD.LIQ PO PRN (17:17)
[2018-12-05] MEDS ORDERED: Temazepam 15 MG CAPSULE PO PRN (17:17)
[2018-12-05] MEDS ORDERED: Naloxone 0.4 MG/ML INJ IVP PRN (17:17)
[2018-12-05] MEDS ORDERED: *HR* Enoxaparin 30 MG/0.3 ML SYRINGE SQ SCH (18:00)
[2018-12-05] MEDS: Ascorbic Acid 500 MG TABLET PO SCH (18:19)
[2018-12-05] MEDS: *HR* Enoxaparin 30 MG/0.3 ML SYRINGE SQ SCH (18:19)
[2018-12-05] MEDS: *HR* OxyCODONE/APAP 5/325 TABLET PO PRN (18:22)
[2018-12-05] MEDS: traMADol 50 MG TABLET PO PRN (20:34)
[2018-12-06] MEDS: *HR* Enoxaparin 30 MG/0.3 ML SYRINGE SQ SCH ×2 (05:10→17:20)
[2018-12-06 06:46] LABS: Hematocrit 31.2 % (35.3-44.9)
[2018-12-06 06:49] LABS: Hemoglobin 10.4 g/dL (11.5-15.4)
[2018-12-06 07:04] LABS: BUN/Creatinine Ratio 19 (6-26); Blood Urea Nitrogen 11 mg/dL (8-23); Calcium 8.2 mg/dL (8.6-10.3); Carbon Dioxide 25 mEq/L (23-29); Chloride 105 mEq/L (98-107); Glucose 136 mg/dL (70-105); Osmolality,Calculated 285 (280-300); Potassium 4.1 mEq/L (3.5-5.1); Sodium 137 mEq/L (136-145); eGFR For Non-African Americans > 60 (> 60)
--- NOTE | 2018-12-06 08:12 | Orthopedics Progress Note ---
Date of Encounter: 12/06/18 Time of Encounter: 08:12 Subjective Interval history: Patient was seen this morning doing well without complaints. Afebrile vital signs stable. Operative extremity: Neurovascularly intact Dressing clean dry and intact Calves nontender Assessment and plan: Continue with postoperative care Hematocrit 31 Objective Vital signs: Vital Signs Temp Pulse Resp BP Pulse Ox 12/06/18 07:16 99.0 F 82 14 107/71 94 12/06/18 03:11 98.5 F 105 17 130/77 95 12/05/18 23:20 98.8 F 98 16 113/72 91 12/05/18 18:35 98.1 F 108 16 143/83 94 12/05/18 16:20 97.8 F 99 16 136/82 99 12/05/18 16:07 98.5 F 97 16 143/86 99 12/05/18 15:57 98.5 F 98 18 138/77 98 12/05/18 15:47 104 16 132/83 100 12/05/18 15:37 106 18 129/78 98 12/05/18 15:27 97.7 F 121 20 122/66 96 12/05/18 12:56 98.5 F 73 18 144/86 100 Intake and Output 12/05/18 12/06/18 12/06/18 23:59 07:59 15:59 Intake Total 450 / 450 150 / 150 Output Total 200 / 200 200 / 200 Balance 250 / 250 -50 / -50 Intake: IV Fluids 100 / 100 100 / 100 Ancef 2,000 MG In 0.9 % Sodium 100 / 100 100 / 100 Chloride 100 ML @ 200 mls/hr IVPB Q8H [facility] Rx#:[id number] Oral 350 / 350 50 / 50 Output: Urine 200 / 200 200 / 200 Other: Weight 83.1 kg Patient Weight 12/06/18 23:59 Weight 83.1 kg - Labs CBC & BMP: 12/06/18 06:18 12/06/18 06:18 Labs: Abnormal lab results Hgb 10.4 g/dL (11.5-15.4) L D 12/06/18 06:18 Hct 31.2 % (35.3-44.9) L 12/06/18 06:18 Creatinine 0.58 mg/dL (0.60-1.20) L 12/06/18 06:18 Glucose 136 mg/dL (70-105) H 12/06/18 06:18 Calcium 8.2 mg/dL (8.6-10.3) L 12/06/18 06:18 - VTE Documentation of Mechanical Device: Venous foot pump, device Consult Discharge Plan - Plan Referrals: Can Haas DO [Primary Care Provider] -
[2018-12-06] MEDS: UBIDECARENONE 60 MG PO SCH (08:39)
[2018-12-06] MEDS: Multivit/Ca/Min/Fe/FA 1 TAB TABLET PO SCH (08:40)
[2018-12-06] MEDS: traMADol 50 MG TABLET PO PRN (08:40)
[2018-12-06] MEDS: Cholecalciferol (D-3) 1,000 UNIT TABLET PO SCH (08:40)
[2018-12-06] MEDS: Ascorbic Acid 500 MG TABLET PO SCH ×2 (08:40→17:20)
[2018-12-06] MEDS ORDERED: (Rosuvastatin Calcium [Crestor] 5 MG) PO SCH (09:00)
[2018-12-06] MEDS: *HR* OxyCODONE/APAP 5/325 TABLET PO PRN ×3 (12:57→21:18)
--- NOTE | 2018-12-06 15:10 | Orthopedic Operative Note ---
Date of procedure: 12/05/18 Pre-op diagnosis: Right knee arthritis Post-op diagnosis: same Procedure: Procedure: Right robotic-assisted Total knee replacement Estimated blood loss: 200 cc Hardware: Metal and polyethylene replacement. [place] Femur: 2 Tibia: 2 PS insert: 11 Patella: 33 Procedural Notes: Grade 4 arthritic changes all 3 components. Operative procedure: The patient was brought to the operating room and placed on the operating room table. After general anesthesia was administered the operative knee was examined. Findings were noted in the exam under anesthesia. The operative extremity was prepped and draped in sterile surgical fashion. The patient received IV antibiotics prior to skin incision. A standard midline incision was made centered over the patella. The incision was made through the skin and subcutaneous tissue. A medial parapatellar tendon approach was performed. Care was taken to preserve tissue along the medial aspect of the patella. And to protect the patella tendon. The deep MCL was released off the medial tibia. The infra patella fat pad was excised. The patella was everted and cut was made at the level of the insertion of the quadriceps and patella tendon. The patella was sized the guide was seated and the lug holes are drilled. Knee was brought into flexion. Patient noted to have grade 4 arthritic changes all 3 compartments. Steinmann pins were placed in the tibia and the femur for the tibial and femoral arrays respectively. Checkpoints were also placed in the tibia and the femur for calculation purposes. The knee including the femur and the tibial registered. Osteophytes, ACL and PCL were excised at this point. Extension and flexion were assessed with a valgus stress components were adjusted on the computer to balance the knee. Femoral cuts were made first with robotic assistance, these included the anterior cut posterior cuts chamfer cuts. Tibial cut was then performed with robotic assistance as well. Bone fragments were removed, as well as the medial and lateral meniscus. The size 2 femoral guide was seated box cut was made lug holes are drilled. The size 2 tibial tray was seated and prepared with the fin cutter. Trial reduction with the 11 PS Ekaterina revealed full extension and full flexion. No varus valgus instability. Trial reduction revealed excellent patella tracking. All trial components were removed all bony surfaces were irrigated. The Tibia was seated followed by the femur, The Ekaterina size 11 was seated and secured patella. Patient had similar findings for motion and stability. The knee was closed by the PA. The knee was then irrigated out with 2 L of pulse irrigation. The extensor mechanism was closed with #2 FiberWire suture and #2 PDS suture. The subcutaneous tissue was then irrigated and closed deep with #1 PDS suture superficially with 0 PDS suture and skin was closed with zip tie The patient was then placed in a sterile dressing and a postoperative brace extubated and transferred to recovery room in stable condition. Anesthesia: spinal Surgeon: Jacob Bolaños Was there an custody assistant present: No Estimated blood loss (cc): 200 Condition: stable Disposition: PACU
[2018-12-07] MEDS: *HR* OxyCODONE/APAP 5/325 TABLET PO PRN ×2 (03:14→08:09)
[2018-12-07] MEDS: *HR* Enoxaparin 30 MG/0.3 ML SYRINGE SQ SCH (06:18)
[2018-12-07] MEDS: Cholecalciferol (D-3) 1,000 UNIT TABLET PO SCH (08:09)
[2018-12-07] MEDS: Ascorbic Acid 500 MG TABLET PO SCH (08:09)
[2018-12-07] MEDS: Multivit/Ca/Min/Fe/FA 1 TAB TABLET PO SCH (08:09)
[2018-12-07] MEDS: UBIDECARENONE 60 MG PO SCH (08:10)
[2018-12-07 09:05] LABS: Hematocrit 31.5 % (35.3-44.9); Hemoglobin 10.4 g/dL (11.5-15.4)
[2018-12-07 09:25] LABS: BUN/Creatinine Ratio 20 (6-26); Blood Urea Nitrogen 12 mg/dL (8-23); Calcium 8.5 mg/dL (8.6-10.3); Carbon Dioxide 30 mEq/L (23-29); Chloride 106 mEq/L (98-107); Glucose 108 mg/dL (70-105); Osmolality,Calculated 290 (280-300); Potassium 3.8 mEq/L (3.5-5.1); Sodium 140 mEq/L (136-145); eGFR For Non-African Americans > 60 (> 60)
--- NOTE | 2018-12-07 10:38 | Event Note ---
Date of Encounter: 12/06/18 Time of Encounter: 12:30 PCR - POD#1 - Right TKR 12/05/18. Patient seen at bedside, without complaints. A&O x 3 Afebrile, vital signs stable. Labs reviewed. H/H - stable, asymptomatic Pain control: adequate Participating in PT. All questions and concerns addressed. Educated on use of incentive spirometer. Encouraged ambulation and proper hydration. Patient educated on post-operative restrictions and post-operative care. Assessment and plan: Continue with postoperative care Discharge plan: Home with OP, discharge tomorrow .
[2018-12-07 12:19] VITALS: BP 137/76
== END 2018-12-07 12:58 | disposition home or self-care (01) | DRG 470 ==
LOC: SAMDAY 12:26 → 3NENU 16:49
PROVIDERS: ADMIT Orthopaedic Surgery; ATTEND Orthopaedic Surgery